=== PATIENT | male | born 1975 | race Caucasian/White ===

== ENCOUNTER 2023-04-28 09:51 | Observation (INO) ==
[2023-04-28 10:50] LABS: Basophils # (auto) 0.04 K/uL (0-0.2); Basophils % (auto) 0.6 %; Eosinophils # (auto) 0.09 K/uL (0-0.50); Eosinophils % (auto) 1.2 %; Hematocrit (blood only) 41.2 % (42.0-52.0); Hemoglobin 14.3 g/dl (14.0-18.0); Immature Granulocytes # (auto) 0.02 K/uL (0.01-0.20); Immature Granulocytes % (auto) 0.3 %; Lymphocytes # (auto) 0.84 K/uL (1.2-3.4); Lymphocytes % (auto) 11.6 %; Mean Corpuscular Hemoglobin 29.8 pg (25.0-34.0); Mean Corpuscular Hgb Conc 34.7 g/dL (32.0-36.0); Mean Corpuscular Volume 85.8 fL (80.0-100.0); Mean Platelet Volume 9.8 fL (9.4-12.4); Monocytes # (auto) 0.73 K/uL (0.11-0.59); Monocytes % (auto) 10.1 %; Neutrophils # (auto) 5.52 K/uL (1.40-6.50); Neutrophils % (auto) 76.2 %; Platelet Count 272 K/uL (130-400); RDW Coefficient of Variation 12.5 % (11.5-14.5); RDW Standard Deviation 39.5 fL (36.4-46.3); White Blood Count 7.24 K/ul (4.8-10.8)
[2023-04-28 11:04] LABS: Albumin Globulin Ratio 1.5 (0.9-2); BUN Creatinine Ratio 17.6 (10-20); Bilirubin,Total 0.6 mg/dl (0.2-1.0); Calcium 8.8 mg/dl (8.6-10.3); Creatinine Clr Calc Pharmacy 127.6 ml/min; Est GFR (Non-African American) 105.2 ml/min; Globulin 2.6 gm/dl (2.5-4.0); Potassium 4.4 mmol/L (3.5-5.1); Total Protein 6.6 gm/dl (6.0-8.3)
[2023-04-28 11:11] LABS: Troponin I High Sensitivity 24.8 pg/ml (0-20)
--- NOTE | 2023-04-28 11:16 | XRay Report ---
XR chest 1V portable HISTORY: 47 years-old Male Dyspnea acute shortness of breath COMPARISON: 05/25/2011 TECHNIQUE: AP view of the chest FINDINGS: Cardiac mediastinal and hilar silhouettes are unchanged. No pneumothorax, pleural effusion, airspace consolidation or pulmonary edema. Bones appear grossly intact. IMPRESSION: No acute process. ACT 112: Negative or not required by law. The above report was generated using voice recognition software. It may contain grammatical, syntax o r spelling errors. Electronically signed by: Yann Chi M.D. 04/28/2023 11:14 AM
[2023-04-28] MEDS ORDERED: OPTIRAY 320 125ml IV ONE (11:40)
--- NOTE | 2023-04-28 11:57 | CT Scan Report ---
CT angio chest PE protocol CT DOSE: 651.75 mGy.cm HISTORY: 47 years-old Male with PE. Acute shortness of breath TECHNIQUE: Multiple CTA images of the chest were obtained after the intravenous administration of 111 ml Optiray. Coronal and sagittal MIPS were obtained from the axial data set and were submitted for review. All measurements were obtained according to NASCET criteria. A dose lowering technique was u tilized adhering to the principles of ALARA. COMPARISON: Chest radiograph of same day. FINDINGS: CTA: There is adequate opacification of the pulmonary arteries to the level of the subsegmental branches w ithout convincing evidence of acute pulmonary embolism. Normal thoracic aorta.Heart size is normal. CT CHEST: Unremarkable thyroid. Mild mediastinal and hilar lymphadenopathy. Subcarinal lymph nodes measure up t o 10 mm. Hilar lymph nodes measure up to 2.4 x 1.5 cm on the right. Small pleural effusions with mild dependent bibasilar consolidation. No pneumothorax or overt pulmonary edema. Subcentimeter calcified granuloma of the left upper lobe. 4 mm subpleural solid nodule of the right middle lobe, image 52 se aaron 4. No acute process of the imaged upper abdomen. Unremarkable soft tissues. No acute fracture. IMPRESSION: 1. No pulmonary emboli identified. 2. Small pleural effusions with mild dependent bibasilar opacities suggestive of atelectasis. 3. Mild nonspecific mediastinal and hilar lymphadenopathy. ACT 112: Negative or not required by law. The above report was generated using voice recognition software. It may contain grammatical, syntax o r spelling errors. Electronically signed by: Yann Chi M.D. 04/28/2023 11:54 AM
[2023-04-28] MEDS ORDERED: KETOROLAC 30 MG/ML VIAL IV ONE (13:11)
--- NOTE | 2023-04-28 13:24 | Emergency Department Note ---
Impression & Plan Elevated troponin, Right-sided chest pain, Acute dyspnea Admit to the [facility] ED Provider Note NAME: ALL HUGHES AGE: 47 SEX: M ARRIVES VIA: Walk-In INFORMANT: Patient ED PROVIDER(S): Meli Solorzano DO CHIEF COMPLAINT: Shortness of breath PLAN: Disposition: Admit to the [facility] Condition: Stable MEDICAL DECISION MAKING: This is a 47-year-old male patient who presents to the emergency department with shortness of breath and right-sided chest pain. Patient had an episode earlier this week of discomfort in the right side of his chest and shortness of breath. Pain returned this weekend and seem to be worse when he tried to lay down and take a deep breath. Laboratory studies here in the emergency department revealed an elevated troponin. EKG was unremarkable and CT scan of the chest was negative for PE. Repeat high-sensitivity troponin went up slightly while here in the ER. [facility] for further [facility] care. Triage Nursing notes reviewed and agree with them. Vital Signs: reviewed and remarkable for bradycardia Differential diagnosis: GERD, pleurisy, costochondritis, PE, aortic dissection, cardiac ischemia ER treatment provided: Cardiac monitoring Twelve-lead EKG CT scan of the chest IV Toradol Diagnostics interpreted by me: ECG: Normal sinus rhythm at a rate of [address] segment elevation or signs of ischemia. There is no ectopy. Cardiac Monitoring: Sinus bradycardia at a rate of 56 Laboratory studies: See below Imaging studies: As per my independent interpretation Portable chest x-ray: No acute pulmonary infiltrates or consolidation CT scan of the chest: As per radiology report HPI: 47/M arrives for evaluation of shortness of breath and chest discomfort. Patient developed heartburn sensation approximately 5 days ago. Since that time he felt as if he could not take a deep breath and had some discomfort in the right side of his chest. Symptoms seem to worsen when he lays down. Patient also noted that he felt off balance approximately 5 days ago but that seems to have resolved. PAST MEDICAL HISTORY:None PAST SURGICAL HISTORY:Appendectomy, with left knee surgery FAMILY HISTORY:Father had a stroke and has a history of colon cancer SOCIAL HISTORY:Patient works in construction and [employer]; he does not smoke HOME MEDICATIONS:None ALLERGIES:None VITALS:See Below PHYSICAL EXAMINATION: HEENT: Head - normocephalic and atraumatic. Pupils are equal, round, and reactive to light. Extraocular eye muscles are intact, and sclera are anicteric. Nose - moist nasal mucosa without discharge. Mouth - moist buccal mucosa. Oropharynx is nonerythematous and there is no tonsillar exudate or edema noted. Neck: Supple; no JVD, or cervical lymphadenopathy Chest: There is no reproducible discomfort with palpation of the anterior chest wall. Heart: Regular rate and rhythm. There is a normal S1 and S2 with no murmurs, clicks, or gallops appreciated. Lungs: Clear to auscultation bilaterally with no wheezes, rales, or rhonchi. Abdomen: Soft, completely nontender, nondistended, with good bowel sounds. There are no palpable pulsatile masses or hepatosplenomegaly. There is no gua rding, rigidity, or rebound noted. Extremities: No evidence of cyanosis, clubbing, or edema. There are easily palpable peripheral pulses. Skin: warm and dry with good turgor and no rashes. ED COURSE: Times/Reassessments: 11:00 patient was evaluated in room B3. A complete history and physical was performed. An order was placed for continuous cardiac monitoring. The patient was in a sinus bradycardia at a rate of 56. A twelve- lead EKG was obtained. An IV lock was initiated and labs were drawn as above. Patient declined wanting anything for pain. Portable chest x-ray was performed. Patient went for CT scan of the chest. Patient was finally agreeable to have IV analgesia. He was given a dose of IV Toradol for his discomfort. He was able to drink clear liquids. I reviewed results with the patient. He had a repeat troponin level obtained which had gone up slightly more. [facility] and [facility] will evaluate for further inpatient care. Meli Solorzano, DO Past Med/Surg History Social History Smoking Status: Former smoker Second Hand Exposure: No; Do You Dip or Chew Tobacco: Yes; Tobacco Cessation Education Requested by Patient: No Hx Alcohol Use: Yes Alcohol type: beer and hard liquor Hx Substance Use: No Preferred Language: Thai Communication Ability: Effective [employer] Technician Required: No Beliefs That Will Affect Care: None Current Living Situation: Alone and Family Other Information That Helps Us Care for You: No Feels Safe at Home: Yes Safety Concerns: Feels Safe At This Time Assistive Devices: None Allergies Allergies Allergy/AdvReac Type Severity Reaction Status Date / Time No Known Allergies Allergy Verified 07/01/19 16:52 Home Meds Home Medications Medication Instructions Recorded Confirmed naproxen sodium 220 mg tablet 220 mg PO BID PRN Pain 04/28/23 04/28/23 (Aleve) Results & Data (ED) Vital Signs Vital Signs - 24 hr 04/28/23 14:00 04/28/23 15:00 Pulse Rate 61 57 L Pulse Rate from SpO2 Sensor 60 57 L Respiratory Rate 16 16 Blood Pressure 125/78 118/80 Blood Pressure Mean 93 92 Pulse Oximetry 98 98 Oxygen Delivery Method Room Air Room Air Laboratory Data 04/28/23 10:34 04/28/23 10:34 Lab Results 04/28/23 04/28/23 04/28/23 Range/Units 10:34 10:34 13:31 WBC 7.24 (4.8-10.8) K/ul RBC 4.80 (4.70-6.10) M/uL Hgb 14.3 (14.0-18.0) g/dl Hct 41.2 L (42.0-52.0) % MCV 85.8 (80.0-100.0) fL MCH 29.8 (25.0-34.0) pg MCHC 34.7 (32.0-36.0) g/dL RDW Std Deviation 39.5 (36.4-46.3) fL RDW Coeff of Nathan 12.5 (11.5-14.5) % Plt Count 272 (130-400) K/uL MPV 9.8 (9.4-12.4) fL Immature Gran % (Auto) 0.3 % Neut % (Auto) 76.2 % Lymph % (Auto) 11.6 % Ray % (Auto) 10.1 % Eos % (Auto) 1.2 % Baso % (Auto) 0.6 % Neut # (Auto) 5.52 (1.40-6.50) K/uL Lymph # (Auto) 0.84 L (1.2-3.4) K/uL Ray # (Auto) 0.73 H (0.11-0.59) K/uL Eos # (Auto) 0.09 (0-0.50) K/uL Baso # (Auto) 0.04 (0-0.2) K/uL Immature Gran # (Auto) 0.02 (0.01-0.20) K/uL Sodium 139 (136-145) mmol/L Potassium 4.4 (3.5-5.1) mmol/L Chloride 107 (98-107) mmol/L Carbon Dioxide 27 (21-32) mmol/L Anion Gap 5 (3-11) BUN 15 (6-23) mg/dl Creatinine 0.85 (0.6-1.4) mg/dl Est Cr Clr Drug Dosing 127.6 ml/min Est GFR ( Amer) 122.0 ml/min Est GFR (Non-Af Amer) 105.2 ml/min BUN/Creatinine Ratio 17.6 (10-20) Glucose 100 H (70-99(Fasting)) mg/dl Calcium 8.8 (8.6-10.3) mg/dl Total Bilirubin 0.6 (0.2-1.0) mg/dl AST 19 (13-39) U/L ALT 21 (7-52) U/L Alkaline Phosphatase 57 (34-104) U/L Troponin I High Sens 24.8 H 26.7 H (0-20) pg/ml Total Protein 6.6 (6.0-8.3) gm/dl Albumin 4.0 (3.4-5.0) gm/dl Globulin 2.6 (2.5-4.0) gm/dl Albumin/Globulin Ratio 1.5 (0.9-2) Lyme Disease IgG Ab (Negative) Lyme Disease IgM Ab (Negative) SARS-CoV-2, RNA, NAAT (NEGATIVE) 04/28/23 04/28/23 Range/Units 15:09 15:27 WBC (4.8-10.8) K/ul RBC (4.70-6.10) M/uL Hgb (14.0-18.0) g/dl Hct (42.0-52.0) % MCV (80.0-100.0) fL MCH (25.0-34.0) pg MCHC (32.0-36.0) g/dL RDW Std Deviation (36.4-46.3) fL RDW Coeff of Nathan (11.5-14.5) % Plt Count (130-400) K/uL MPV (9.4-12.4) fL Immature Gran % (Auto) % Neut % (Auto) % Lymph % (Auto) % Ray % (Auto) % Eos % (Auto) % Baso % (Auto) % Neut # (Auto) (1.40-6.50) K/uL Lymph # (Auto) (1.2-3.4) K/uL Ray # (Auto) (0.11-0.59) K/uL Eos # (Auto) (0-0.50) K/uL Baso # (Auto) (0-0.2) K/uL Immature Gran # (Auto) (0.01-0.20) K/uL Sodium (136-145) mmol/L Potassium (3.5-5.1) mmol/L Chloride (98-107) mmol/L Carbon Dioxide (21-32) mmol/L Anion Gap (3-11) BUN (6-23) mg/dl Creatinine (0.6-1.4) mg/dl Est Cr Clr Drug Dosing ml/min Est GFR ( Amer) ml/min Est GFR (Non-Af Amer) ml/min BUN/Creatinine Ratio (10-20) Glucose (70-99(Fasting)) mg/dl Calcium (8.6-10.3) mg/dl Total Bilirubin (0.2-1.0) mg/dl AST (13-39) U/L ALT (7-52) U/L Alkaline Phosphatase (34-104) U/L Troponin I High Sens (0-20) pg/ml Total Protein (6.0-8.3) gm/dl Albumin (3.4-5.0) gm/dl Globulin (2.5-4.0) gm/dl Albumin/Globulin Ratio (0.9-2) Lyme Disease IgG Ab Negative (Negative) Lyme Disease IgM Ab Negative (Negative) SARS-CoV-2, RNA, NAAT NEGATIVE (NEGATIVE) Administered Medications Enoxaparin Sodium (Enoxaparin Inj 40 Mg/0.4 Ml Syr) 40 mg SQ Q24H SOPHY Stop: 05/28/23 16:59 Last Admin: 04/28/23 17:36 Dose: 40 mg Documented By: Famotidine 20 mg/ Syringe 5 mls @ 2.5 mls/min IV BID SOPHY Stop: 05/28/23 16:59 Last Admin: 04/29/23 08:29 Dose: 2.5 mls/min Documented By: Admin: 04/28/23 17:35 Dose: 2.5 mls/min Documented By: Pantoprazole Sodium (Pantoprazole 40 Mg Tab) 40 mg PO DAILY SOPHY Stop: 05/28/23 16:34 Last Admin: 04/29/23 08:29 Dose: 40 mg Documented By: Admin: 04/28/23 17:36 Dose: 40 mg Documented By: Discontinued Medications Ioversol (Optiray 320 125ml) 111 ml IV ONCE ONE Stop: 04/28/23 11:41 Last Admin: 04/28/23 11:40 Dose: 111 ml Documented By: KELVIN Ketorolac Tromethamine (Ketorolac 30 Mg/Ml Vial) 30 mg IV NOW ONE Stop: 04/28/23 13:12 Last Admin: 04/28/23 13:31 Dose: 30 mg Documented By: MOJGAN Imaging Data Radiologist's Impression: Chest X-Ray 04/28/23 10:26 XR chest 1V portable HISTORY: 47 years-old Male Dyspnea acute shortness of breath COMPARISON: 05/25/2011 TECHNIQUE: AP view of the chest FINDINGS: Cardiac mediastinal and hilar silhouettes are unchanged. No pneumothorax, pleural effusion, airspace consolidation or pulmonary edema. Bones appear grossly intact. IMPRESSION: No acute process. ACT 112: Negative or not required by law. The above report was generated using voice recognition software. It may contain grammatical, syntax or spelling errors. Electronically signed by: Yann Chi M.D. 04/28/2023 11:14 AM Chest CTA 04/28/23 11:17 CT angio chest PE protocol CT DOSE: 651.75 mGy.cm HISTORY: 47 years-old Male with PE. Acute shortness of breath TECHNIQUE: Multiple CTA images of the chest were obtained after the intravenous administration of 111 ml Optiray. Coronal and sagittal MIPS were obtained from the axial data set and were submitted for review. All measurements were obtained according to NASCET criteria. A dose lowering technique was utilized adhering to the principles of ALARA. COMPARISON: Chest radiograph of same day. FINDINGS: CTA: There is adequate opacification of the pulmonary arteries to the level of the subsegmental branches without convincing evidence of acute pulmonary embolism. Normal thoracic aorta.Heart size is normal. CT CHEST: Unremarkable thyroid. Mild mediastinal and hilar lymphadenopathy. Subcarinal lymph nodes measure up to 10 mm. Hilar lymph nodes measure up to 2.4 x 1.5 cm on the right. Small pleural effusions with mild dependent bibasilar consolidation. No pneumothorax or overt pulmonary edema. Subcentimeter calcified granuloma of the left upper lobe. 4 mm subpleural solid nodule of the right middle lobe, image 52 series 4. No acute process of the imaged upper abdomen. Unremarkable soft tissues. No acute fracture. IMPRESSION: 1. No pulmonary emboli identified. 2. Small pleural effusions with mild dependent bibasilar opacities suggestive of atelectasis. 3. Mild nonspecific mediastinal and hilar lymphadenopathy. ACT 112: Negative or not required by law. The above report was generated using voice recognition software. It may contain grammatical, syntax or spelling errors. Electronically signed by: Yann Cih M.D. 04/28/2023 11:54 AM Discharge Plan Visit Data Chief Complaint: Shortness of Breath/Dyspnea Stated Complaint: DIFFICULTY BREATHING, CHEST TIGHTNESS ED Provider: Meli Solorzano Discharge Problem: Elevated troponin, Right-sided chest pain, Acute dyspnea Patient Disposition: Admitted As Inpatient Discharge Instructions Interventions: ED Discharge Assessment Last Done: 04/28/23 16:16
--- NOTE | 2023-04-28 15:29 | History & Physical Report ---
Date of Service April 28, 2023 Assessment & Plan (1) Chest pain: Plan: Chest pain, shortness of breath Patient describes 2 episodes this week of severe chest pain worsened with inspiration which is associated with some shortness of breath in the last 24 hours Not reproducible on exam, but did significantly improve with Toradol D-dimer was elevated - CTA: 1. No pulmonary emboli identified. 2. Small pleural effusions with mild dependent bibasilar opacities suggestive of atelectasis. 3. Mild nonspecific mediastinal and hilar lymphadenopathy. Lyme serology ordered as patient works in [employer] EKG without acute findings of ischemia Creatinine 0.85 WBC normal, hemoglobin 14.3 and normocytic, platelets normal. She has no transaminitis High-sensitivity troponin , trended x3 and echo pending No history of melena/GI bleed. Given history of reflux-like symptoms after food and NSAID use will cover with PPI/H2 on admission Hilar lymphadenopathy No history of sarcoid, fungal infections No concurrent anemia, leukopenia DONN level ordered DVT prophylaxis: Lovenox Diet: Heart healthy Disposition: Medical telemetry CODE STATUS: Full code History of Present Illness Primary Care Provider: NO PCP Garland is a 47-year-old male with no past medical history who is very active working with [employer] who 5 days ago had pain with breathing Reports he has been having chest pain this week. First episode of pain was Saturday, and had spicy foot at the time. Thought it was heartburn. Did not take any medications for it. Did not have shortness of breath at the time. chest pain seemed to ease and went away. Saturday had a little discomfort, then yesterday had much more severe pain. he was sitting in the chair not doing anything when the chest pain came on . +SoB and breathing made it worse. Was walking downtown with his son for 4-5 hours prior to onset of the discomfort which came on ~1030 last night. Pain is greatly improved after pain meds and can now almost take a full deep breath without pain No history of chest pain prior to this. Alieve 2x on saturday for back pain. Didnt try additional for the chest No hx HTN, DM, OK FHX: Father with a stroke at age 62. No hsitory of heart disease in father. Maternal grandparents with OK's in 70s. FHX DM in PGM otherwise no DM Medical History: Reviewed Medications: Reviewed Surgical History: Reviewed Family history: Reviewed Allergies: Reviewed Social History: Chews tobacco 1 tin per 2-3 days. No vaping or cigarettes. EtOH once per week or two weeks. No recreational drugs. Code Status: Full Code Allergies Allergy/AdvReac Type Severity Reaction Status Date / Time No Known Allergies Allergy Verified 07/01/19 16:52 Home Medications Medication Instructions Recorded Confirmed Type naproxen sodium 220 mg tablet 220 mg PO BID PRN Pain 04/28/23 04/28/23 History (Aleve) Past Med/Surg History Social History Feels Safe at Home: Yes Review of Systems Review of Systems: All systems reviewed & are unremarkable except as noted in Subjective Physical Exam Physical Exam: General: A&Ox3. NAD. Cooperative. HEENT: Atraumatic, normocephalic. Vision/hearing grossly Pulm: CTAB A&P. -wheezes, -rales, -rhonchi. Symmetrical chest rise. No increased work of breathing. No respiratory distress. Cardiac: RRR, -mrg. Radial pulses intact and symmetrical. No reproducible chest pain Abdominal: Nontender, nondistended, soft. BS present. Extremities: Warm, dry moves all extremities equally. No rashes Results & Data Results & Data Vital Signs (Past 12 Hours) Vital Signs Temp Pulse Resp BP Pulse Ox O2 Del Method 04/28/23 14:00 61 16 125/78 98 Room Air 04/28/23 13:00 54 L 17 117/72 98 Room Air 04/28/23 12:01 58 L 17 108/60 98 Room Air 04/28/23 12:02 57 L 04/28/23 11:00 62 16 118/76 96 Room Air 04/28/23 10:33 64 15 97 Room Air 04/28/23 10:33 Room Air 04/28/23 10:14 Room Air 04/28/23 10:03 36.7 C 73 18 110/73 97 Room Air PG Care Time/CCT Total # of Minutes Spent Total Time Spent with Patient: Total time spent is greater than 50% in coordination of care (as documented) at patient's floor/unit and/or counseling patient: Coding Level of Care Code 39182 INT INP/OBS CARE 2/55MIN Diagnoses Chest pain R07.9
[2023-04-28 16:10] LABS: Lyme Ab IgG w/WB Rflx Negative (Negative); Lyme Ab IgM w/WB Rflx Negative (Negative)
[2023-04-28] MEDS ORDERED: ACETAMINOPHEN 325 MG TAB PO PRN (16:35)
[2023-04-28] MEDS ORDERED: POLYETHYLENE (MIRALAX) 17 GM PACK PO PRN (16:35)
[2023-04-28] MEDS ORDERED: ENOXAPARIN INJ 40 MG/0.4 ML SYR SQ SCH (17:00)
[2023-04-28] MEDS: FAMOTIDINE 20 MG in SYRINGE 3 ML IV SCH (17:35)
[2023-04-28] MEDS: PANTOprazole 40 MG TAB PO SCH (17:36)
[2023-04-29 06:17] LABS: Basophils # (auto) 0.03 K/uL (0-0.2); Basophils % (auto) 0.6 %; Eosinophils # (auto) 0.18 K/uL (0-0.50); Eosinophils % (auto) 3.8 %; Hematocrit (blood only) 37.2 % (42.0-52.0); Hemoglobin 12.6 g/dl (14.0-18.0); Immature Granulocytes # (auto) 0.02 K/uL (0.01-0.20); Immature Granulocytes % (auto) 0.4 %; Lymphocytes # (auto) 1.24 K/uL (1.2-3.4); Lymphocytes % (auto) 26.1 %; Mean Corpuscular Hemoglobin 29.3 pg (25.0-34.0); Mean Corpuscular Hgb Conc 33.9 g/dL (32.0-36.0); Mean Corpuscular Volume 86.5 fL (80.0-100.0); Mean Platelet Volume 10.3 fL (9.4-12.4); Monocytes % (auto) 12.6 %; Neutrophils # (auto) 2.68 K/uL (1.40-6.50); Neutrophils % (auto) 56.5 %; Platelet Count 250 K/uL (130-400); RDW Coefficient of Variation 12.7 % (11.5-14.5); RDW Standard Deviation 39.8 fL (36.4-46.3); White Blood Count 4.75 K/ul (4.8-10.8)
[2023-04-29] MEDS: PANTOprazole 40 MG TAB PO SCH (08:29)
[2023-04-29] MEDS: FAMOTIDINE 20 MG in SYRINGE 3 ML IV SCH (08:29)
--- NOTE | 2023-04-29 13:15 | XCELERA ---
[id number]
--- NOTE | 2023-04-29 13:20 | Discharge Summary ---
Date of Service April 29, 2023 Admission HPI Per Admitting Provider Garland is a 47-year-old male with no past medical history who is very active working with [employer] who 5 days ago had pain with breathing Reports he has been having chest pain this week. First episode of pain was , and had spicy foot at the time. Thought it was heartburn. Did not take any medications for it. Did not have shortness of breath at the time. chest pain seemed to ease and went away. Saturday had a little discomfort, then yesterday had much more severe pain. he was sitting in the chair not doing anything when the chest pain came on . +SoB and breathing made it worse. Was walking downtown with his son for 4-5 hours prior to onset of the discomfort which came on ~1030 last night. Pain is greatly improved after pain meds and can now almost take a full deep breath without pain No history of chest pain prior to this. Alieve 2x on saturday for back pain. Didnt try additional for the chest No hx HTN, DM, CT FHX: Father with a stroke at age 62. No hsitory of heart disease in father. Maternal grandparents with CT's in 70s. FHX DM in PGM otherwise no DM Medical History: Reviewed Medications: Reviewed Surgical History: Reviewed Family history: Reviewed Allergies: Reviewed Social History: Chews tobacco 1 tin per 2-3 days. No vaping or cigarettes. EtOH once per week or two weeks. No recreational drugs. Code Status: Full Code Principal Diagnosis Noncardiac chest pain Discharge Exam General-alert and oriented x3, no fevers, no chills HEENT-head atraumatic and normocephalic, pupils equal and reactive to light, extraocular muscles intact Neck-no lymphadenopathy or thyromegaly, trachea midline Chest-clear to auscultation percussion. No rales wheezing or rhonchi Cardiac-regular rate and rhythm, normal S1 and S2 Abdomen-normal bowel sounds, nontender, no hepatosplenomegaly Extremities-no cyanosis, clubbing, or edema Neuro-cranial nerves II through XII intact, motor and sensory function within normal limits, strength symmetrical , no focal deficits Psych-normal affect, normal mood Discharge Data Allergies Allergy/AdvReac Type Severity Reaction Status Date / Time No Known Allergies Allergy Verified 07/01/19 16:52 Consultations 04/28/23 15:04 ED Decision to Admit Stat Ordered Studies 04/28/23 11:17 CT angio chest PE protocol Stat Hospital Course (1) Chest pain: Resolved. No acute EKG changes. No regional wall motion abnormality seen on cardiac echo. Troponin levels are not trending. This does not appear to be acute coronary syndrome and is noncardiac in etiology. (2) Hilar adenopathy: Incidental finding on chest CT scan. This can be followed up as an outpatient Plan Home today, April 29. He may return to work with his usual duties tomorrow, April 30 Total Time Total Time Spent Total Time Spent (In Minutes): 40 minutes Discharge Plan Discharge Items Patient Disposition: Home - Self-Care Reason For Visit: CHEST PAIN/SOB Discharge Diagnosis: Noncardiac chest pain Activity: Resume your previous activity Non-emergency contact: Primary Care Provider Call non-emergency contact if: your symptoms worsen Follow-up/Referrals: PCP,NO [Primary Care Provider] - Diet: Regular Addtl Attending Provider Instructions: Chest discomfort appears to be noncardiac in etiology. Use liquid antacids as needed for any recurrent chest pain and see response Pending Studies at Discharge: No Stand-Alone Forms: [employer], Work/School Release, Smoking Cessation Medications and DC Order Prescriptions: Continued naproxen sodium [Aleve] 220 mg Tablet 220 mg PO BID PRN (Reason: Pain) Discharge Orders: Discharge Order (Routine); Ordered 04/29/23 Ordered By: Wan Bearden Admission Data Admit Date/Time: 04/28/23 15:40 Attending Provider: Wan Bearden Admit Provider: Jose Zaragoza Primary Care Provider: PCP,NO Other Providers: Jose Zaragoza Coding Level of Care Code 96085 INP/OBS DISCH >30 MIN Diagnoses Chest pain R07.9 Hilar adenopathy R59.0
--- NOTE | 2023-04-29 18:02 | Electrocardiogram Report ---
Test Reason : Blood Pressure : / mmHG Vent. Rate : 069 BPM Atrial Rate : 069 BPM P-R Int : 146 ms QRS Dur : 094 ms QT Int : 408 ms P-R-T Axes : 048 -13 008 degrees QTc Int : 437 ms Normal sinus rhythm Normal ECG When compared with ECG of 28-APR-2023 10:09, (unconfirmed) No significant change was found Confirmed by Eduardo Liu ([id number]) on 04/29/2023 6:02:22 PM Referred By: REFERRED SELF Confirmed By:Mario Alberto Liu
--- NOTE | 2023-04-29 18:02 | Electrocardiogram Report ---
Test Reason : Blood Pressure : / mmHG Vent. Rate : 067 BPM Atrial Rate : 067 BPM P-R Int : 150 ms QRS Dur : 096 ms QT Int : 412 ms P-R-T Axes : 053 -09 005 degrees QTc Int : 435 ms Normal sinus rhythm Normal ECG No previous ECGs available Confirmed by Eduardo Liu ([id number]) on 04/29/2023 6:02:02 PM Referred By: REFERRED SELF Confirmed By:Mario Alberto Liu
--- NOTE | 2023-04-29 18:15 | Electrocardiogram Report ---
Test Reason : Blood Pressure : / mmHG Vent. Rate : 062 BPM Atrial Rate : 062 BPM P-R Int : 144 ms QRS Dur : 098 ms QT Int : 436 ms P-R-T Axes : 068 051 015 degrees QTc Int : 442 ms Normal sinus rhythm Normal ECG When compared with ECG of 28-APR-2023 10:29, (unconfirmed) Questionable change in QRS axis Confirmed by Eduardo Liu ([id number]) on 04/29/2023 6:15:12 PM Referred By: REFERRED SELF Confirmed By:Mario Alberto Liu
== END 2023-04-29 14:10 | disposition home or self-care (01) ==
LOC: 2E 09:51 → ED 09:51 → SUATTDRO 15:40 → 2E 16:16